=== PATIENT | male | born 1940 | race Caucasian/White ===

== ENCOUNTER → 2017-07-25 | Outpatient (CLI) | payer BC ==
[2016-04-22 00:59] VITALS: BP 138/75
[~2017-07-25] MED LIST: CIPR500T94 PO; COLC1TAB PO; HYDR-2679 PO; LEVO25TA4 PO; LISI10TA2 PO; NAPR220C4 PO; ONDA4TAB7 PO; OXYC-323 PO; SOFO1TAB PO; TAMS0.4C97 PO; THIA100T8 PO
--- NOTE | 2017-07-25 15:22 | RAD ---
EXAM: Chest 2 views. HISTORY: Shortness of breath, hypertension. COMPARISON: 05/24/2008. FINDINGS: Frontal and lateral views of the chest are obtained. Interstitial opacities in both bases have been present chronically. Flattening of the hemidiaphragms is consistent with chronic obstructive pulmonary disease. There is no pneumothorax or pleural effusion. The heart is mildly enlarged. There are postsurgical changes along the upper abdomen. Moderate compression deformity is noted at the thoracolumbar junction. There are milder compression deformities within the mid/upper thoracic spine. IMPRESSION: 1. Chronic obstructive pulmonary disease with superimposed interstitial lung disease or scarring in the bases. 2. Mild cardiomegaly.
== END | disposition home or self-care (01) ==
LOC: RAD 14:03
PROVIDERS: ATTEND Internal Medicine Critical Care Medicine
DX: J44.9 Chronic obstructive pulmonary disease, unspecified (principal); I51.7 Cardiomegaly; M43.8X5 Other specified deforming dorsopathies, thoracolumbar region; I10 Essential (primary) hypertension; F17.210 Nicotine dependence, cigarettes, uncomplicated
CPT/HCPCS: 71020

== ENCOUNTER → 2017-08-05 | Outpatient (CLI) | payer BC ==
[2016-04-22 00:59] VITALS: BP 138/75
[~2017-08-05] MED LIST changes: +CYAN10005 PO; +LOSA50TA6 PO
--- NOTE | 2017-08-05 10:32 | RAD ---
Indication: Interstitial lung disease. Axial imaging through the chest was performed without contrast. Correlation is made with prior CT from 01/30/2016. No axillary lymphadenopathy is seen. Mildly prominent right paratracheal lymph node appears stable when compared with prior study. There are coronary arterial calcifications present. The heart is enlarged. No pericardial or pleural fluid is identified. Occasional blebs or subpleural bullae are noted. There is a focal slightly irregular opacity in the medial aspect of the right upper lobe image 13, series 2 measuring 10 mm. This is more prominent than prior study and remains indeterminate. No other new opacity is seen. Small subpleural nodule right upper lobe image 30 is stable. Calcified granuloma left lower lobe is noted. Subpleural nodule left lower lobe image 40, series 2 measures 6 mm compared with 4 mm. Close follow-up is recommended. Upper abdomen shows multiple calculi within bilateral kidneys. Impression: 1. Increase in the irregular opacity in the right lung apex since study from 01/30/2016. There is also a slightly larger subpleural nodule left lower lobe. Both of these are indeterminate. Close follow-up with repeat study in 3-6 months recommended to confirm stability. PQRS Compliance Statement: One or more of the following individualized dose reduction techniques were utilized for this examination: 1. Automated exposure control 2. Adjustment of the mA and/or kV according to patient size 3. Use of iterative reconstruction technique
== END | disposition home or self-care (01) ==
LOC: CT 08:59
PROVIDERS: ATTEND Internal Medicine Critical Care Medicine
DX: J84.10 Pulmonary fibrosis, unspecified (principal); I51.7 Cardiomegaly
CPT/HCPCS: 71250; J0690

== ENCOUNTER → 2017-09-02 | Outpatient (CLI) | payer BC ==
[2016-04-22 00:59] VITALS: BP 138/75
[~2017-09-02] MED LIST changes: +ASCO10002 PO; +CIPR500T PO; +OXYMETAZOLINE 0.05% NASAL SPRAY 30ML BOTTLE. NS ONE; +THIA100T43 PO; +VIT1TABL34 PO; +ZOLPIDEM 5 MG TABLET. PO ONE
--- NOTE | 2017-09-03 10:03 | SLEEP ---
DATE OF STUDY: 09/02/2017 ATTENDING PHYSICIAN: Dr. Eli and referred by my office. The patient is a 77-year-old who weighs 168 pounds with a BMI of 30. The patient's [place] score was 3. The patient underwent a split night study at [facility]. During the night study, the patient spent 417 minutes in bed and slept for 182 minutes with a sleep efficiency of 44%. Sleep latency was prolonged at 80 minutes with a REM latency of 272 minutes. Overall, sleep architecture showed increased stage I sleep, normal stage II sleep, normal slow wave and reduced REM sleep. During the initial diagnostic portion of the study, the patient slept for 108 minutes. During this time, there were 9 obstructive apneas, 18 mixed apneas, no central apneas and 17 hypopneas. The patient's apnea hypopnea index was 59 per hour. The patient did not have supine sleep. The patient did not have REM sleep either during the diagnostic portion. Review of nocturnal oximetry study revealed a mean oxygen saturation of 94% with the lowest of 87%; 4% of time oxygen saturation remained between 80% and 89%. EKG monitoring revealed an irregular rhythm consistent with atrial fibrillation. Average heart rate was 52 beats per minute. PLMs were not seen. The patient met the criteria for CPAP initiation. It was started at 5 cm water and titrated up to 7 cm water. At the final pressure, the patient slept for 34 minutes. The patient had supine sleep throughout and a short REM period was observed as well. The patient's AHI was reduced to 0 per hour and oxygen saturation remained above 90%. The patient used small size full face mask. IMPRESSION: 1. Severe sleep apnea-hypopnea syndrome at an apnea-hypopnea index of 59 per hour. 2. Reduced sleep efficiency resulting from sleep onset and sleep maintenance insomnia. 3. No clinically significant periodic limb movements. 4. Abnormal EKG with irregular rhythm consistent with intermittent atrial fibrillation. RECOMMENDATION: 1. CPAP at 7 cm water completely eliminated the patient's sleep apnea and should be used on a nightly basis. 2. Follow up in 4-6 weeks to assess compliance with CPAP and to document clinical improvement. 3. Avoid [employer] depressants. 4. Caution regarding driving until symptoms of sleep apnea resolve with the use of CPAP. 5. Follow Cardiology regarding abnormal EKG. 6. The patient used small size full face mask. 7. If the patient's insomnia does not improve, then it would need further clinical evaluation. BILL BRYANT MD DR: FELIX/thony JOB#: [id number] / [id number] NAN [place]
== END | disposition home or self-care (01) ==
LOC: RT 18:30
PROVIDERS: ATTEND Internal Medicine Critical Care Medicine
DX: G47.33 Obstructive sleep apnea (adult) (pediatric) (principal)
CPT/HCPCS: 95810

== ENCOUNTER 2017-09-11 06:59 | Outpatient (CLI) | payer BC ==
[~2017-09-11] VITALS: Ht 167.6 cm; Wt 76.2 kg
[2017-09-11] VITALS (14 sets, daily range): BP systolic 113–179; BP diastolic 62–84
[~2017-09-11 06:59] MED LIST changes: -ASCO10002 PO; -CIPR500T PO; -OXYMETAZOLINE 0.05% NASAL SPRAY 30ML BOTTLE. NS ONE; -THIA100T43 PO; -VIT1TABL34 PO; -ZOLPIDEM 5 MG TABLET. PO ONE
[2017-09-11] MEDS ORDERED: THIA100T43 PO (07:51)
[2017-09-11] MEDS ORDERED: VIT1TABL34 PO (07:51)
[2017-09-11] MEDS ORDERED: ASCO10002 PO (07:51)
[2017-09-11] MEDS ORDERED: CIPR500T PO (07:51)
[2017-09-11 08:26] LABS: BASO % 1 % (0-3); EOS % 3 % (0-3); HEMATOCRIT 44.9 % (39.0-53.0); HEMOGLOBIN 14.9 g/dL (13.0-17.5); LYMPH # 1.3 x10^3/uL (1.0-4.8); LYMPH % 26 % (24-48); MEAN CORPUSCULAR HEMOGLOBIN 32 pg (25-35); MEAN CORPUSCULAR HGB CONC 33 g/dL (31-37); MEAN CORPUSCULAR VOLUME 97 fL (79-100); MONO % 7 % (0-9); NEUT % 63 % (31-73); PLATELET COUNT 77 x10^3/uL (140-400); RED BLOOD COUNT 4.64 x10^6/uL (4.30-5.70); RED CELL DISTRIBUTION WIDTH 14.4 % (11.5-14.5); WHITE BLOOD COUNT 4.8 x10^3/uL (4.0-11.0)
[2017-09-11 08:37] LABS: INR 1.2 (0.8-1.1); PROTHROMBIN TIME PATIENT 14.1 SEC (11.7-14.0)
[2017-09-11] MEDS ORDERED: LIDOCAINE WITH 8.4% SOD BICARB 3 ML DISP.SYRIN. IJ ONE ×2 (08:37→09:45)
[2017-09-11] MEDS ORDERED: fentaNYL PF VIAL 100 MCG/2 ML VIAL ONE (08:38)
[2017-09-11] MEDS ORDERED: FLUMAZENIL 0.5 MG/5 ML VIAL. IV ONE (08:38)
[2017-09-11] MEDS ORDERED: MIDAZOLAM HCL/PF 2 MG/2 ML VIAL. ONE (08:38)
[2017-09-11] MEDS ORDERED: NALOXONE 0.4 MG/ML VIAL. ONE (08:39)
--- NOTE | 2017-09-11 09:37 | PDOC1 ---
History and Physical Date of Procedure Date of Admission History of Present Illness Reason for Visit RUL lung nodule Past Medical History Past Medical History see nursing assessment Current Medications Current Medications Current Medications Lidocaine/Sodium Bicarbonate (Buffered Lidocaine 1%) 3 ml STK-MED ONCE IJ ; Start 09/11/17 at 08:37; Stop 09/11/17 at 08:38; Status DC Midazolam HCl (Versed) 2 mg STK-MED ONCE .ROUTE ; Start 09/11/17 at 08:38; Stop 09/11/17 at 08:39; Status DC Fentanyl Citrate (Fentanyl 2ml Vial) 100 mcg STK-MED ONCE .ROUTE ; Start at 08:38; Stop 09/11/17 at 08:39; Status DC Flumazenil (Romazicon) 0.5 mg STK-MED ONCE IV ; Start 09/11/17 at 08:38; Stop 09/11/17 at 08:39; Status DC Naloxone HCl (Narcan) 0.4 mg STK-MED ONCE .ROUTE ; Start 09/11/17 at 08:39; Stop 09/11/17 at 08:40; Status DC Lidocaine/Sodium Bicarbonate (Buffered Lidocaine 1%) 9 ml 1X ONCE IJ ; Start 09/11/17 at 09:45; Stop 09/11/17 at 09:46; Status UNV Midazolam HCl (Versed) 2 mg 1X ONCE IV ; Start 09/11/17 at 09:45; Stop at 09:46; Status UNV Fentanyl Citrate (Fentanyl 2ml Vial) 75 mcg 1X ONCE IV ; Start 09/11/17 at 09: 45; Stop 09/11/17 at 09:46; Status UNV Active Scripts Active Reported Ciprofloxacin Hcl 500 Mg Tablet 1 Tab PO BID B-1 (Thiamine HCl) 100 Mg Tablet 100 Mg PO Preservision Areds Tablet (Vit A/Vit C/Vit E/Zinc/Copper) 1 Each Tablet 1 Each PO Vitamin C (Ascorbic Acid) 1,000 Mg Tablet 1,000 Mg PO Vitamin B-12 (Cyanocobalamin (Vitamin B-12)) 1,000 Mcg Tablet 1,000 Mcg PO DAILY Losartan Potassium 50 Mg Tablet 50 Mg PO DAILY Probenecid-Colchicine Tabs (Colchicine/Probenecid) 1 Each Tablet 1 Each PO BID Levothyroxine Sodium 25 Mcg Tablet 25 Mcg PO DAILY Percocet 5-325 Mg Tablet (Oxycodone/Acetaminophen) 1 Each Tablet 1-2 Tab PO Q 4- 6HRS PRN PAIN Allergies Allergies: Coded Allergies: No Known Drug Allergies (Unverified , 02/27/16) Physical Exam Vital Signs Vital Signs Date Time Temp Pulse Resp B/P (MAP) Pulse Ox O2 Delivery O2 Flow Rate FiO2 09/11/17 09:29 59 15 97 Nasal Cannula 2.0 09/11/17 07:41 98.2 179/84 (115) 98.2 Other See nursing assessment Assessment Assessment RUL lung nodule Problems: Plan Plan CT lung biopsy BRIT GREEN MD Sep 11, 2017 09:37
--- NOTE | 2017-09-11 09:38 | PDOC ---
BRIEF OPERATIVE NOTE Pre-Op Diagnosis RUL lung nodule Post-Op Diagnosis same Procedure Performed CT lung biopsy Surgeon Ritchie Anesthesia Type: Conscious Sedation Specimens Obtained 3 x 20g cores Complications None BRIT GREEN MD Sep 11, 2017 09:38
--- NOTE | 2017-09-11 09:38 | PDOC ---
MODERATE SEDATION ASSESSMENT RISKS/ALTERNATIVES Risks/Alternatives Risks and alternatives of this type of sedation and procedure discussed with: RISK/ALTERNATIVES: Patient H & P ON CHART H & P H & P on chart and reviewed for co-morbid conditions and appropriate labs. H&P ON CHART: Yes STATUS PREG STATUS ASSESSED: Yes MEDS/ALLERGIES REVIEWED Meds/Allergies Reviewed Medications and Allergies including time and route of recently administered narcotics and sedatives. MEDS/ALLERGIES REVIEWED: Yes ASA RATING ASA RATING: II AIRWAY ASSESSMENT Airway Assessment Airway patency, oral function limitations, presence of caps, crowns, dentures, partials, and ability to extend neck assessed. AIRWAY ASSESSMENT: Yes MALLAMPATI SCORE MALLAMPATI SCORE: II PRE-SEDATION ASSESSMENT PRE-SEDATION ASSESSMENT: Yes BRIT GREEN MD Sep 11, 2017 09:38
[2017-09-11] MEDS ORDERED: MIDAZOLAM HCL/PF 2 MG/2 ML VIAL. IV ONE (09:45)
[2017-09-11] MEDS ORDERED: fentaNYL PF VIAL 100 MCG/2 ML VIAL IV ONE (09:45)
--- NOTE | 2017-09-11 10:26 | RAD ---
Procedure: CT-guided right lung biopsy Clinical Indication: Adult male with right upper lobe lung nodule Sedation: Conscious sedation was administered for 22 minutes. The patient was monitored by a qualified independent observer throughout the time of sedation. Please refer to the medical record for exact doses of medications utilized to achieve moderate sedation. Antibiotics: None Contrast: None Sterility: The procedure was performed in its entirety using appropriate elements of sterile technique. Consent: The procedure was explained in its entirety to the patient or the patients designated transportation services representative by a member of the treatment team, including a discussion of the risks, benefits and commonly accepted alternatives to the procedure, as well as the expected consequences of no therapy whatsoever. Discussion of the risks included, but was not limited to, those that are most frequent and those that are rare but possibly severe or life-threatening, as well as the possibility of unforeseen complications. Technique and Findings: Following informed consent, the patient was prepped and draped in usual sterile fashion. Preliminary CT scan of the area of interest was performed. 1% lidocaine was used to achieve local anesthesia. A small dermatotomy was made. Under periodic CT surveillance, a 19-gauge needle guide was advanced towards the target lesion in 3 x 20-gauge core biopsy specimens were obtained and preserved in formalin. A blood patch was applied as the needle guide was removed and hemostasis was achieved with manual compression. Complications: No immediate Impression: 1. CT-guided right upper lobe lung biopsy as described. PQRS Compliance Statement: One or more of the following individualized dose reduction techniques were utilized for this examination: 1. Automated exposure control 2. Adjustment of the mA and/or kV according to patient size 3. Use of iterative reconstruction technique
--- NOTE | 2017-09-11 12:24 | RAD ---
Inspection and expiration chest radiographs without comparison for status post right lung biopsy. Findings: There is no pneumothorax or pleural effusion. Increased interstitial markings in the right lung base likely reflects chronic interstitial changes. Cardiomediastinum is grossly unremarkable. There is an old healed rib fracture on the right. Impression: 1. No acute cardiopulmonary abnormality.
--- NOTE | 2017-09-12 11:23 | PATHOLOGY ---
PATHOLOGY REPORT * * * * * * * * FINAL DIAGNOSIS: Lung tissue, right lung needle biopsies: - Focal recent intraalveolar hemorrhage and mild interstitial chronic inflammation. COMMENT: Sections of the right lung needle biopsy reveal multiple segments of lung tissue showing focal recent intraalveolar hemorrhage and focal mild interstitial chronic inflammation. Alveolar spaces are focally lined by plump, reactive, mildly atypical pneumocytes. There is no definitive evidence of malignancy. (JPM:pit; 09/12/2017) REPORT ELECTRONICALLY SIGNED BY: Georgi Huertas M.D. DATE/TIME: 09/12/2017 11:21 * * * * * * * * GROSS PATHOLOGY: The specimen is received in formalin, labeled "Marcial Araujo and right lung biopsy", are several needle core richard fragments, the aggregate measure 0.3 x 0.2 cm. The specimen is filtered into a biopsy bag and entirely submitted in A1. (SWS; 09/11/2017) INITIAL CPT CODE(S): A; 12320 Professional services [place] [address] Technical services performed by [facility] at [address] [place] [address]. SPECIMEN(S) RECEIVED: A.Right upper lobe lung biopsy CLINICAL HISTORY: Right lung nodule PATIENT: MARCIAL ARAUJO SR /AGE: 704/02/1940 (Age: 77) PATIENT #: [id number] ALT CASE #: SPECIMEN COLLECTION DATE: 09/11/2017 SPECIMEN RECEIVED DATE: 09/11/2017 [facility] - [address] [place] [address] - PHONE: [phone] * * * END OF REPORT * * *
== END 2017-09-11 13:30 | disposition home or self-care (01) ==
LOC: INTRAD 06:59
PROVIDERS: ATTEND Internal Medicine Critical Care Medicine
DX: R91.1 Solitary pulmonary nodule (principal); I11.0 Hypertensive heart disease with heart failure; I50.9 Heart failure, unspecified; K21.9 Gastro-esophageal reflux disease without esophagitis; M19.91 Primary osteoarthritis, unspecified site; E03.9 Hypothyroidism, unspecified; F32.9 Major depressive disorder, single episode, unspecified; F17.200 Nicotine dependence, unspecified, uncomplicated; Z79.01 Long term (current) use of anticoagulants; Z98.41 Cataract extraction status, right eye; Z98.42 Cataract extraction status, left eye; Z90.49 Acquired absence of other specified parts of digestive tract; Z72.89 Other problems related to lifestyle; Z85.46 Personal history of malignant neoplasm of prostate; Z87.442 Personal history of urinary calculi
CPT/HCPCS: 32405; 36415; 71035; 77012; 85025; 85610; 99152; 99153; J2250; J3010

== ENCOUNTER 2018-07-12 11:41 | Emergency (ER) | payer BC ==
[~2018-07-12] VITALS: Ht 167.6 cm; Wt 76.7 kg
[~2018-07-12 11:41] MED LIST changes: +ASCO10002 PO; +CIPR500T PO; -LOSA50TA6 PO; +LOSA50TA7 PO; +THIA100T43 PO; +VIT1TABL34 PO
[2018-07-12] MEDS ORDERED: IV NORMAL SALINE 500ML BAG 500 ML IV ONE (12:15)
[2018-07-12] MEDS ORDERED: fentaNYL PF VIAL 100 MCG/2 ML VIAL IV ONE ×2 (12:15→13:30)
--- NOTE | 2018-07-12 12:19 | PHYS DOC ---
Past Medical History Past Medical History: Alcoholism, CHF, COPD, Hypertension, Hypothyroid, Kidney Stone Additional Past Medical Histor: gout, prostate ca, rt knee pain, hep c Past Surgical History: Cholecystectomy, Knee Replacement Additional Past Surgical Histo: 4 hernia surgeries, cystoscopy Additional Information: 1 ppd Alcohol Use: Heavy Additional Information: 12 pack beer daily, vodka every night Drug Use: None Adult General Chief Complaint Chief Complaint: BACK PAIN - NO INJURY HPI HPI 78-year-old male presents to ER via POV with his son Werner for complaints of lower back pain which started on Saturday. Patient had no symptoms on Saturday and won't Saturday morning with lower back pain which radiated into his left buttock. Patient reports last Saturday he drove his truck with a trailer containing heavy items to [place] which bounced freq. with weight of trailer. Pt reports he took aleve this morning with minimal relief in sxs. Pt denies CP, palpitations, SOA, abd pain, N/V/D, fever, urinary sxs, or swelling in extremities. Pt denies any change in bowel pattern. Patient denies saddle anesthesia or incontinence of bowel or bladder. She reports he had regular bowel movement yesterday. He reports in the past couple weeks he had some started patient on which his doctor informed him to increase his fluid intake. Patient reports he is a daily drinker of 6-12 beers and 2-3 vodka drinks. Patient reports he has one pack per day cigarette smoker. Patient denies any swelling or pain in bilateral calves. Patient denies any other travel. Review of Systems Review of Systems Constitutional: Denies fever or chills [] Eyes: Denies change in visual acuity, redness, or eye pain [] HENT: Denies nasal congestion or sore throat [] Respiratory: Denies cough or shortness of breath [] Cardiovascular: Denies CP GI: Denies abdominal pain, nausea, vomiting, bloody stools or diarrhea area denies saddle anesthesia. Reports regular bowel movement yesterday : Denies dysuria or hematuria. Denies incontinence Musculoskeletal: Denies joint pain. Reports lower back pain Integument: Denies rash, swelling or skin lesions [] Neurologic: Denies headache, focal weakness or sensory changes. Denies numbness or tingling, dizziness, or lightheadedness All other systems were reviewed and found to be within normal limits, except as documented in this note. Current Medications Current Medications Current Medications Medications (Trade) Dose Ordered Sig/[place] Start Time Stop Time Status Last Admin Dose Admin Fentanyl Citrate (Fentanyl 2ml Vial) 25 mcg 1X ONCE 07/12/18 13:30 07/12/18 13:31 DC 07/12/18 13:29 25 MCG Info (CONTRAST GIVEN -- Rx MONITORING) 1 each PRN DAILY PRN 07/12/18 12:30 07/12/18 14:57 DC Iohexol (Omnipaque 300 Mg/ml) 75 ml 1X ONCE 07/12/18 12:30 07/12/18 12:31 DC 07/12/18 12:30 75 ML Lidocaine (Lidoderm) 1 patch STK-MED ONCE 07/12/18 12:27 07/12/18 12:28 DC Sodium Chloride 500 ml @ 500 mls/hr 1X ONCE 07/12/18 12:15 07/12/18 13:14 DC 07/12/18 12:30 500 MLS/HR Allergies Allergies Allergies Coded Allergies Type Severity Reaction Last Updated Verified No Known Drug Allergies 06/25/18 No Physical Exam Physical Exam Constitutional: Well developed, well nourished, no acute distress, non-toxic appearance. [] HENT: Normocephalic, atraumatic, oropharynx moist, nose normal. [] Eyes: pupils equal, conjunctiva normal, no discharge. [] Neck: Normal range of motion, no tenderness, supple, no stridor. [] Cardiovascular:Heart rate regular rhythm, no murmur [] Lungs & Thorax: Bilateral breath sounds clear to auscultation. Resp. equal/ nonlabored Abdomen: Bowel sounds normal, soft, no tenderness, no pulsatile masses. Visible hernia mid umbilical- no rigidity/distention Skin: Warm, dry, no erythema, no rash. [] Back: Tender to palp. midline lumbar spine- no deformity/crepitus. No ecchymosis /skin discoloration. Pt is able to reposition self with slow movements- facial grimacing and c/o increased pain with repositioning. No CVA tenderness. [] Extremities: No tenderness, no cyanosis, no clubbing, ROM intact, no edema. [] Neurologic: Alert and oriented X 3, normal motor function, normal sensory function, no focal deficits noted. [] Psychologic: Affect normal, judgement normal, mood normal. [] Current Patient Data Vital Signs Vital Signs Date Time Temp Pulse Resp B/P (MAP) Pulse Ox O2 Delivery O2 Flow Rate FiO2 07/12/18 14:37 52 20 172/80 (110) 97 Room Air 07/12/18 11:52 97.8 97.8 Lab Values Laboratory Tests Test 07/12/18 12:20 07/12/18 12:50 White Blood Count 5.5 x10^3/uL (4.0-11.0) Red Blood Count 4.38 x10^6/uL (4.30-5.70) Hemoglobin 14.8 g/dL (13.0-17.5) Hematocrit 42.1 % (39.0-53.0) Mean Corpuscular Volume 96 fL (79-100) Mean Corpuscular Hemoglobin 34 pg (25-35) Mean Corpuscular Hemoglobin Concent 35 g/dL (31-37) Red Cell Distribution Width 14.2 % (11.5-14.5) Platelet Count 72 x10^3/uL (140-400) L Neutrophils (%) (Auto) 62 % (31-73) Lymphocytes (%) (Auto) 22 % (24-48) L Monocytes (%) (Auto) 7 % (0-9) Eosinophils (%) (Auto) 9 % (0-3) H Basophils (%) (Auto) 1 % (0-3) Neutrophils # (Auto) 3.4 x10^3uL (1.8-7.7) Lymphocytes # (Auto) 1.2 x10^3/uL (1.0-4.8) Monocytes # (Auto) 0.4 x10^3/uL (0.0-1.1) Eosinophils # (Auto) 0.5 x10^3/uL (0.0-0.7) Basophils # (Auto) 0.0 x10^3/uL (0.0-0.2) Sodium Level 141 mmol/L (136-145) Potassium Level 4.1 mmol/L (3.5-5.1) Chloride Level 103 mmol/L (98-107) Carbon Dioxide Level 25 mmol/L (21-32) Anion Gap 13 (6-14) Blood Urea Nitrogen 13 mg/dL (8-26) Creatinine 1.1 mg/dL (0.7-1.3) Estimated GFR (Cockcroft-Gault) 64.7 BUN/Creatinine Ratio 12 (6-20) Glucose Level 106 mg/dL (70-99) H Lactic Acid Level 1.9 mmol/L (0.4-2.0) Calcium Level 9.3 mg/dL (8.5-10.1) Total Bilirubin 0.9 mg/dL (0.2-1.0) Aspartate Amino Transferase (AST) 12 U/L (15-37) L Alanine Aminotransferase (ALT) 18 U/L (16-63) Alkaline Phosphatase 90 U/L (46-116) Total Protein 7.0 g/dL (6.4-8.2) Albumin 3.6 g/dL (3.4-5.0) Albumin/Globulin Ratio 1.1 (1.0-1.7) Urine Collection Type Void Urine Color Yellow Urine Clarity Clear Urine pH 7.0 Urine Specific [place] 1.010 Urine Protein Negative mg/dL (NEG-TRACE) Urine Glucose (UA) Negative mg/dL (NEG) Urine Ketones (Stick) Negative mg/dL (NEG) Urine Blood Negative (NEG) Urine Nitrite Negative (NEG) Urine Bilirubin Negative (NEG) Urine Urobilinogen Dipstick 0.2 mg/dL (0.2 mg/dL) Urine Leukocyte Esterase Negative (NEG) Urine RBC 1-2 /HPF (0-2) Urine WBC 1-4 /HPF (0-4) Urine Squamous Epithelial Cells Few /LPF Urine Bacteria Few /HPF (0-FEW) Urine Hyaline Casts Few /HPF Urine Mucus Slight /LPF Laboratory Tests 07/12/18 12:20 Laboratory Tests 07/12/18 12:20 EKG EKG [] Radiology/Procedures Radiology/Procedures PROCEDURE: CT ABD PELV W/ IV CONTRST ONLY Examination: CT ABD PELV W/ IV CONTRST ONLY History: sudden lower abd and back pain, Omni 300 75ml
prior sent, prostate cancer. Comparison/Correlation: CT chest abdomen pelvis with contrast 01/30/2016 Findings: Axial images of the abdomen and pelvis were obtained following 300 cc Omnipaque 300 IV. Sagittal and coronal reformatted images were provided. Emphysematous bolus involvement of the medial left lung base is noted. Bullous involvement atelectasis to a much lesser extent involving the lung lo. No suspicious pulmonary nodule or mass. Scarring involving the medial right upper lung is noted. Calcification of the tracheobronchial tree wall noted. No enlarged thoracic lymph nodes. Thoracic aorta is unremarkable. Small hiatal hernia is present. Nodular contour of the liver compatible with cirrhosis or other fibrotic process noted. Thrombus is identified involving the superior mesenteric vein just proximal to portal vein confluence similar to the previous exam.. Cholecystectomy noted. Spleen is enlarged measuring 17 cm longitudinal. Pancreas is normal. Right adrenal gland is identified having nodule involving the medial limb which is similar compared to the previous CT exam. Nodular involvement of the left adrenal gland also is stable. Bilateral renal cysts are again identified. No hydronephrosis. Appendix is normal. Moderate quantity of stool in the colon is present. Extensive diverticulosis of the colon noted. Ventral wall hernia repair evident. Urinary bladder is unremarkable. Bilateral L5 pars interarticularis fractures are present with grade 2 anterolisthesis of L5 in relation S1 and associated disc space narrowing. Compression deformity of the T12 vertebral body superior endplate is mild and similar to prior exam. There is new compression deformity of the inferior endplate of L3. No enlarged abdominal or pelvic lymph nodes. No ascites or pelvic free fluid. No sclerotic bony lesions identified. Prostatectomy. Impression: Hiatal hernia. Findings of hepatic cirrhosis and splenomegaly due to portal hypertension. 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 Bilateral L5 pars intraarticularis fractures with grade 2 anterolisthesis of L5 in relation S1 is present. There is slight increase in anterolisthesis of L5 in relation S1 compared to the previous CT exam of 01/30/2016. Compression deformity of the L3 inferior endplate is new compared to previous exam. No suspicious lytic or sclerotic lesions involving the bony structures in the interval. Diverticulosis. Electronically signed by: Michael Brown MD (07/12/2018 1:57 PM) [facility] DICTATED and SIGNED BY: MICHAEL BROWN MD DATE: 07/12/18 1338 PROCEDURE: CT LUMBAR SPINE RECONSTRUCTION Examination: CT LUMBAR SPINE RECONSTRUCTION History: lower back pain, reconstruction Comparison/Correlation: CT abdomen and pelvis with contrast dated 01/30/2016 Findings: Axial images of the lumbar spine were obtained. Sagittal and coronal reformatted images were provided. Bilateral L5 pars intraarticularis fractures with grade 2 anterolisthesis of L5 in relation S1 is present. There is slight increase in anterolisthesis of L5 in relation S1 compared to the previous CT exam of 01/30/2016. Compression deformity of the L3 inferior endplate is noted compared to the previous exam. The disc spaces and alignment of the spine otherwise are unremarkable from the visualized lower thoracic spine to L5. Bilateral nonobstructive renal calculi are present. At the right lower pole, the largest calculus is identified measuring up to 0.5 cm diameter. No hydronephrosis. No evidence of calculi involving the ureters. Urinary bladder is unremarkable. Impression: Bilateral L5 pars interarticularis fractures again seen with grade 2 anterolisthesis. Anterolisthesis of L5 in relation S1 is increased compared to 01/30/2000 L3 vertebral body inferior endplate compression fracture is new compared to the previous exam but otherwise is of indeterminate age. Nonobstructive renal calculi. Electronically signed by: Michael Brown MD (07/12/2018 2:02 PM) [facility] DICTATED and SIGNED BY: MICHAEL BROWN MD DATE: 07/12/18 0169 Course & Med Decision Making Course & Med Decision Making Pertinent Labs and Imaging studies reviewed. (See chart for details) 1420: Discussed test results with patient and his family- UA unremarkable. Labs with platelets at 72 which was similar to previous reports in pt's records- this was discussed with him along with his daily alcohol drinking routine- other labs unremarkable. Lactic acid NL at 1.9. Discussed CT results with hiatal hernia noted; "L5 fxs again seen with slight increase in anterolisthesis when compared to previous exam of 01/29/18"; compression deformity of L3 which is new. Discussed results showing hepatic cirrhosis and splenomegaly. In depth conversation was had with pt regarding his daily alcohol intake. Discussed increasing water intake. Admission was offered for pain control further care and pt adamant on home discharge. Pt to f/u with PCP in next 1-2 days for re-evaluation and further care. Discussed use of walker for stability. Discussed alcohol cessation- especially if taking [place] tablets as pt will be provided with sm. quantity with discharge paperwork for concerns of his pain. Fall precautions discussed with strict instruction on walker use. Discussion had with patient regarding constipation as moderate amount of stool was noted on CT results. CT results noted thoracic aorta to be unremarkable. Patient reports his doctor has given him stool softener which she can take. Pt to use OTC ibuprofen as directed on container and will be provided with Rx for Lidoderm patches. Discharge instructions were discussed and education provided on signs and symptoms to return to ER for. At time of discharge patient reports his pain has improved following second dose of pain medication. Patient remains neuro and vascular intact in bilateral lower extremities. Patient has been able to reposition self but does continue to have increased pain with any movements. Dragon Disclaimer Dragon Disclaimer This electronic medical record was generated, in whole or in part, using a voice recognition dictation system. Departure Departure Impression: Primary Impression: Lumbar compression fracture Additional Impression: Back pain Disposition: 01 HOME, SELF-CARE Condition: STABLE Referrals: NAN PATTERSON (PCP) Patient Instructions: Back Pain, Adult, Back, Compression Fracture Additional Instructions: Use walker while walking to prevent falls. Avoid alcohol intake- especially while taking [place] tablets. Increase water intake and take stool softner as your doctor advised to prevent constipation. Follow-up with your doctor in next 1-2 days for re-evaluation and care. You can take Ibuprofen or aleve as directed on container for pain. Scripts Lidocaine (Lidocaine) 1 Each Adh..patch 1 EACH TP Q12HR PRN for PAIN, #5 PATCH 0 Refills Prov: АНДРЕЙ KENT APRN 07/12/18 Hydrocodone/Apap 5-325 (NORCO 5-325 TABLET) 1 Each Tablet 1 TAB PO PRN Q6HRS PRN for PAIN, #10 TAB 0 Refills Prov: АНДРЕЙ KENT APRN 07/12/18 Problem Qualifiers АНДРЕЙ KENT APRN Jul 12, 2018 12:19
[2018-07-12] MEDS ORDERED: LIDOCAINE (700MG/PATCH) PATCH. ONE (12:27)
[2018-07-12] MEDS ORDERED: fentaNYL PF VIAL 100 MCG/2 ML VIAL ONE (12:27)
[2018-07-12] MEDS ORDERED: IOHEXOL 300 MG/ML 100ML VIAL. IV ONE (12:30)
[2018-07-12] MEDS ORDERED: CONTRAST GIVEN. MC PRN (12:30)
[2018-07-12 12:34] LABS: BASO % 1 % (0-3); EOS # 0.5 x10^3/uL (0.0-0.7); EOS % 9 % (0-3); HEMATOCRIT 42.1 % (39.0-53.0); HEMOGLOBIN 14.8 g/dL (13.0-17.5); LYMPH # 1.2 x10^3/uL (1.0-4.8); LYMPH % 22 % (24-48); MEAN CORPUSCULAR HEMOGLOBIN 34 pg (25-35); MEAN CORPUSCULAR HGB CONC 35 g/dL (31-37); MEAN CORPUSCULAR VOLUME 96 fL (79-100); MONO # 0.4 x10^3/uL (0.0-1.1); MONO % 7 % (0-9); NEUT # 3.4 x10^3uL (1.8-7.7); NEUT % 62 % (31-73); PLATELET COUNT 72 x10^3/uL (140-400); RED BLOOD COUNT 4.38 x10^6/uL (4.30-5.70); RED CELL DISTRIBUTION WIDTH 14.2 % (11.5-14.5); WHITE BLOOD COUNT 5.5 x10^3/uL (4.0-11.0)
[2018-07-12 12:41] LABS: CALCIUM 9.3 mg/dL (8.5-10.1); CREATININE 1.1 mg/dL (0.7-1.3); GFR 64.7; POTASSIUM 4.1 mmol/L (3.5-5.1)
[2018-07-12 12:46] LABS: ALBUMIN 3.6 g/dL (3.4-5.0); ALBUMIN/GLOBULIN RATIO 1.1 (1.0-1.7); TOTAL BILIRUBIN 0.9 mg/dL (0.2-1.0)
[2018-07-12] MEDS ORDERED: LIDOCAINE (700MG/PATCH) PATCH. TD SCH (13:00)
[2018-07-12 13:11] LABS: BILIRUBIN,URINE NEGATIVE (NEG); CLARITY,URINE CLEAR; COLOR,URINE YELLOW; NITRITE,URINE NEGATIVE (NEG); PROTEIN,URINE NEGATIVE (NEG-TRACE); UROBILINOGEN,URINE 0.2 mg/dL (0.2 mg/dL)
[2018-07-12 13:22] LABS: SQUAMOUS EPITHELIAL CELL,UR FEW /LPF
[2018-07-12 13:23] LABS: HYALINE CASTS, URINE FEW /HPF
[2018-07-12 13:24] LABS: BACTERIA,URINE FEW /HPF (0-FEW)
--- NOTE | 2018-07-12 14:00 | RAD ---
Examination: CT ABD PELV W/ IV CONTRST ONLY History: sudden lower abd and back pain, Omni 300 75ml
prior sent, prostate cancer. Comparison/Correlation: CT chest abdomen pelvis with contrast 01/30/2016 Findings: Axial images of the abdomen and pelvis were obtained following 300 cc Omnipaque 300 IV. Sagittal and coronal reformatted images were provided. Emphysematous bolus involvement of the medial left lung base is noted. Bullous involvement atelectasis to a much lesser extent involving the lung lo. No suspicious pulmonary nodule or mass. Scarring involving the medial right upper lung is noted. Calcification of the tracheobronchial tree wall noted. No enlarged thoracic lymph nodes. Thoracic aorta is unremarkable. Small hiatal hernia is present. Nodular contour of the liver compatible with cirrhosis or other fibrotic process noted. Thrombus is identified involving the superior mesenteric vein just proximal to portal vein confluence similar to the previous exam.. Cholecystectomy noted. Spleen is enlarged measuring 17 cm longitudinal. Pancreas is normal. Right adrenal gland is identified having nodule involving the medial limb which is similar compared to the previous CT exam. Nodular involvement of the left adrenal gland also is stable. Bilateral renal cysts are again identified. No hydronephrosis. Appendix is normal. Moderate quantity of stool in the colon is present. Extensive diverticulosis of the colon noted. Ventral wall hernia repair evident. Urinary bladder is unremarkable. Bilateral L5 pars interarticularis fractures are present with grade 2 anterolisthesis of L5 in relation S1 and associated disc space narrowing. Compression deformity of the T12 vertebral body superior endplate is mild and similar to prior exam. There is new compression deformity of the inferior endplate of L3. No enlarged abdominal or pelvic lymph nodes. No ascites or pelvic free fluid. No sclerotic bony lesions identified. Prostatectomy. Impression: Hiatal hernia. Findings of hepatic cirrhosis and splenomegaly due to portal hypertension. 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 Bilateral L5 pars intraarticularis fractures with grade 2 anterolisthesis of L5 in relation S1 is present. There is slight increase in anterolisthesis of L5 in relation S1 compared to the previous CT exam of 01/30/2016. Compression deformity of the L3 inferior endplate is new compared to previous exam. No suspicious lytic or sclerotic lesions involving the bony structures in the interval. Diverticulosis. Electronically signed by: Michael Li MD (07/12/2018 1:57 PM) [facility]
--- NOTE | 2018-07-12 14:05 | RAD ---
Examination: CT LUMBAR SPINE RECONSTRUCTION History: lower back pain, reconstruction Comparison/Correlation: CT abdomen and pelvis with contrast dated 01/30/2016 Findings: Axial images of the lumbar spine were obtained. Sagittal and coronal reformatted images were provided. Bilateral L5 pars intraarticularis fractures with grade 2 anterolisthesis of L5 in relation S1 is present. There is slight increase in anterolisthesis of L5 in relation S1 compared to the previous CT exam of 01/30/2016. Compression deformity of the L3 inferior endplate is noted compared to the previous exam. The disc spaces and alignment of the spine otherwise are unremarkable from the visualized lower thoracic spine to L5. Bilateral nonobstructive renal calculi are present. At the right lower pole, the largest calculus is identified measuring up to 0.5 cm diameter. No hydronephrosis. No evidence of calculi involving the ureters. Urinary bladder is unremarkable. Impression: Bilateral L5 pars interarticularis fractures again seen with grade 2 anterolisthesis. Anterolisthesis of L5 in relation S1 is increased compared to 01/30/2000 L3 vertebral body inferior endplate compression fracture is new compared to the previous exam but otherwise is of indeterminate age. Nonobstructive renal calculi. Electronically signed by: Michael Li MD (07/12/2018 2:02 PM) [facility]
[2018-07-12] MEDS ORDERED: LIDO700A39 TP (14:28)
[2018-07-12] MEDS ORDERED: HYDR-971 PO (14:28)
[2018-07-12 14:37] VITALS: BP 172/80
== END 2018-07-12 14:39 | disposition home or self-care (01) ==
LOC: ER 11:41
DX: S32.038A Other fracture of third lumbar vertebra, initial encounter for closed fracture (principal); J44.9 Chronic obstructive pulmonary disease, unspecified; I11.0 Hypertensive heart disease with heart failure; I50.9 Heart failure, unspecified; E03.9 Hypothyroidism, unspecified; M10.9 Gout, unspecified; F10.20 Alcohol dependence, uncomplicated; Y90.9 Presence of alcohol in blood, level not specified; F17.200 Nicotine dependence, unspecified, uncomplicated; Z90.49 Acquired absence of other specified parts of digestive tract; Z98.890 Other specified postprocedural states; Z87.442 Personal history of urinary calculi; X50.0XXA Overexertion from strenuous movement or load, initial encounter; Y93.89 Activity, other specified; Y92.89 Other specified places as the place of occurrence of the external cause; Y99.8 Other external cause status
CPT/HCPCS: 36415; 74177; 80053; 81001; 83605; 85025; 96374; 96376; 99285; J3010; J7040; Q9967

== ENCOUNTER → 2018-08-29 | Outpatient (CLI) | payer BC ==
[~2018-08-29] MED LIST changes: +CONTRAST GIVEN. MC PRN; +HYDR-3164 PO; +IOHEXOL 240 MG/ML 50ML VIAL. PO ONE; +IOHEXOL 300 MG/ML 100ML VIAL. IV ONE; +LIDO700A39 TP; +LOSA-73 PO; -LOSA50TA7 PO; -OXYC-323 PO; +OXYC1TAB15 PO; +OXYC5TAB4 PO; +SENN-37 PO
--- NOTE | 2018-08-29 12:55 | RAD ---
PQRS Compliance statement: One or more of the following individualized dose reduction techniques were utilized for this examination: 1. Automated exposure control. 2. Adjustment of the mA and/or kV according to patient size. 3. Use of iterative reconstruction technique. Indication:PROSTATE CA F/U> TECHNIQUE: CT chest, abdomen and pelviswith IV contrast with multiplanar reformats. COMPARISON: CT chest from 08/05/[address] abdomen pelvis from 07/12/2018 FINDINGS: CT chest: Heart is normal in size. No pericardial or pleural effusion. New Right superior mediastinal mass is seen measuring 3.7 x 3.1 cm. Enlarged mediastinal lymph node is seen in the pretracheal recess measuring 1.7 x 1.3 cm. Right suprahilar mass measuring 2.4 x 2.0 cm. Mildly enlarged 1.0 x 2.0 cm subcarinal lymph node. No axillary adenopathy. The right suprahilar mass exerts significant mass effect on the central branches of the right upper lobe pulmonary arteries. Right upper lobe pleural-based nodule measuring 1.2 cm (series 2 image 13). Multiple pleural-based nodularity seen in the right upper lobe. Stable 3 mm nodule in the right upper lobe (series 2 image 28). New 6 mm right pericardial nodule (series 2 image 31). New 3 mm right lower lobe nodule medially (series 2 image 38). New right major fissure nodule measuring 15 mm (series 2 image 33). Stable left lower lobe subpleural nodule measuring 3 mm (series 2 image 38). Mildly displaced right posterolateral 10th rib fracture. Mild superior endplate compression deformity of T4 and T12 vertebral bodies. Central compression fracture of the T11 vertebral body. No retropulsion the spinal canal. Enlarged right costophrenic recess lymph nodes are seen, the largest measuring 1.6 x 1.0 cm. Nodular contour of the liver is seen with low body distribution without focal hepatic lesion. Spleen is enlarged measuring 16 cm without focal lesion. Status post cholecystectomy. Pancreas is within normal limits. Multiple right adrenal gland nodules are seen, the largest measuring 1.4 cm. (The gland nodule is new and measures 3.0 x 2.0 cm. Multiple nonobstructing stones are seen in the right kidney. Multiple bilateral low attenuating lesions are seen in the bilateral kidneys likely simple cysts. No hydronephrosis. Enlarged retroperitoneal lymph nodes are seen as follows: Anabel hepatis lymph node measuring 1.7 x 1.5 cm, stable. 1.6 x 1.0 cm paracaval lymph node (series 4 image 39), stable. 1.9 x 1.1 cm aortocaval recess lymph node (series 4 image 35), stable. 1.5 x 1.2 cm right external iliac chain lymph node (series 4 image 61), stable. No free pelvic fluid or ascites. No bowel obstruction. Descending colon diverticulosis. Moderate diffuse atherosclerotic calcification seen of the abdominal aorta and bilateral iliac arteries. Urinary bladder within normal limits. Status post prostatectomy. 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 Interval development of compression deformity at L3 vertebral body with no retropulsion the spinal canal. Stable bilateral L5 pars defect with grade 1 anterolisthesis of L5 over S1. IMPRESSION: 1. Metastatic disease in the chest as described above. 2. Stable mildly enlarged retroperitoneal and pelvic lymph nodes highly concerning for metastasis. 3. New and progression of previous is seen compression deformities in the thoracic and lumbar spine as described above without retropulsion into spinal canal. 4. Left adrenal nodule highly concerning for metastasis. 5. Please see above for incidental findings. Electronically signed by: Hi Paniagua DO (08/29/2018 12:51 PM) [facility]
--- NOTE | 2018-08-29 16:29 | RAD ---
Indication: Prostate cancer with back pain for 2 months. TECHNIQUE: Nuclear medicine bone scan with 26.8 mCi of technetium 99m MDP. COMPARISON: CT from same day FINDINGS: Multifocal uptake of radiopharmaceutical is seen in the ribs, left aspect of the high convexity of the calvarium, in the vertebral bodies, in the mid shaft of the right femur and sternum compatible with osseous metastasis. Increased uptake in L3 vertebral body likely secondary to compression fracture. IMPRESSION: Multifocal osseous metastasis as described above. Electronically signed by: Hi Paniagua DO (08/29/2018 4:25 PM) [facility]
== END | disposition home or self-care (01) ==
LOC: NM 08:09
PROVIDERS: ATTEND Internal Medicine Hematology & Oncology
DX: C61 Malignant neoplasm of prostate (principal); S22.32XA Fracture of one rib, left side, initial encounter for closed fracture; S22.080A Wedge compression fracture of T11-T12 vertebra, initial encounter for closed fracture; R16.1 Splenomegaly, not elsewhere classified; R91.8 Other nonspecific abnormal finding of lung field; K57.30 Diverticulosis of large intestine without perforation or abscess without bleeding; I70.8 Atherosclerosis of other arteries; M43.8X6 Other specified deforming dorsopathies, lumbar region; Z90.49 Acquired absence of other specified parts of digestive tract; X58.XXXA Exposure to other specified factors, initial encounter; Y93.89 Activity, other specified; Y92.89 Other specified places as the place of occurrence of the external cause; Y99.2 Volunteer activity
CPT/HCPCS: 71260; 74177; 78306; 96374; A9503; Q9966; Q9967

== ENCOUNTER 2018-09-03 08:48 | Outpatient (CLI) | payer BC ==
[~2018-09-03] VITALS: Ht 167.6 cm; Wt 69.9 kg
[2018-09-03] VITALS (9 sets, daily range): BP systolic 98–135; BP diastolic 51–77
[~2018-09-03 08:48] MED LIST changes: -CONTRAST GIVEN. MC PRN; -IOHEXOL 240 MG/ML 50ML VIAL. PO ONE; -IOHEXOL 300 MG/ML 100ML VIAL. IV ONE
[2018-09-03] MEDS ORDERED: TRAM50TA PO (09:18)
[2018-09-03] MEDS ORDERED: TAMS0.4C2 PO (09:18)
[2018-09-03] MEDS ORDERED: FLUT1BLS3 IH (09:18)
[2018-09-03] MEDS ORDERED: COLC1TAB PO (09:18)
[2018-09-03] MEDS ORDERED: LIDOCAINE WITH 8.4% SOD BICARB 3 ML DISP.SYRIN. ONE (09:29)
[2018-09-03] MEDS ORDERED: fentaNYL PF VIAL 250 MCG/5 ML VIAL ONE (09:31)
[2018-09-03] MEDS ORDERED: MIDAZOLAM HCL/PF 5 MG/5 ML VIAL. ONE (09:31)
[2018-09-03 09:32] LABS: BASO % 0 % (0-3); EOS # 1.4 x10^3/uL (0.0-0.7); EOS % 22 % (0-3); HEMATOCRIT 37.7 % (39.0-53.0); HEMOGLOBIN 12.9 g/dL (13.0-17.5); LYMPH # 0.3 x10^3/uL (1.0-4.8); LYMPH % 5 % (24-48); MEAN CORPUSCULAR HEMOGLOBIN 31 pg (25-35); MEAN CORPUSCULAR HGB CONC 34 g/dL (31-37); MEAN CORPUSCULAR VOLUME 92 fL (79-100); MONO # 0.3 x10^3/uL (0.0-1.1); MONO % 5 % (0-9); NEUT # 4.3 x10^3uL (1.8-7.7); NEUT % 68 % (31-73); PLATELET COUNT 68 x10^3/uL (140-400); RED BLOOD COUNT 4.11 x10^6/uL (4.30-5.70); RED CELL DISTRIBUTION WIDTH 13.6 % (11.5-14.5); WHITE BLOOD COUNT 6.3 x10^3/uL (4.0-11.0)
[2018-09-03 09:42] LABS: PROTHROMBIN TIME PATIENT 15.8 SEC (11.7-14.0)
[2018-09-03] MEDS ORDERED: MIDAZOLAM HCL/PF 5 MG/5 ML VIAL. IV ONE (09:45)
[2018-09-03] MEDS ORDERED: fentaNYL PF VIAL 250 MCG/5 ML VIAL IV ONE (09:45)
[2018-09-03] MEDS ORDERED: LIDOCAINE WITH 8.4% SOD BICARB 3 ML DISP.SYRIN. IJ ONE (09:45)
[2018-09-03 09:56] LABS: % BANDS 27 % (0-9); % EOS 21 % (0-5); % LYMPHS 3 % (24-48); % METAS 1 % (0-0); % MONOS 4 % (0-10); % MYELOS 1 % (0-0); % SEGS 43 % (35-66)
[2018-09-03 09:57] LABS: PLT ESTIMATE DECREASED (ADEQUATE)
[2018-09-03 09:58] LABS: TOXIC VACUOLATION SLIGHT
--- NOTE | 2018-09-03 11:54 | PDOC ---
MODERATE SEDATION ASSESSMENT RISKS/ALTERNATIVES Risks/Alternatives Risks and alternatives of this type of sedation and procedure discussed with: RISK/ALTERNATIVES: Patient H & P ON CHART H & P H & P on chart and reviewed for co-morbid conditions and appropriate labs. H&P ON CHART: Yes STATUS PREG STATUS ASSESSED: Yes MEDS/ALLERGIES REVIEWED Meds/Allergies Reviewed Medications and Allergies including time and route of recently administered narcotics and sedatives. MEDS/ALLERGIES REVIEWED: Yes ASA RATING ASA RATING: II AIRWAY ASSESSMENT Airway Assessment Airway patency, oral function limitations, presence of caps, crowns, dentures, partials, and ability to extend neck assessed. AIRWAY ASSESSMENT: Yes MALLAMPATI SCORE MALLAMPATI SCORE: II PRE-SEDATION ASSESSMENT PRE-SEDATION ASSESSMENT: Yes BRIT GREEN MD Sep 03, 2018 11:54
--- NOTE | 2018-09-03 11:55 | PDOC1 ---
History and Physical Date of Procedure Date of Admission History of Present Illness Reason for Visit pathologic compression fractures at T11 and L3 with debilitating back pain Past Medical History Past Medical History see nursing pre-op assessment Current Medications Current Medications Current Medications Lidocaine/Sodium Bicarbonate (Buffered Lidocaine 1%) 3 ml STK-MED ONCE .ROUTE ; Start 09/03/18 at 09:29; Stop 09/03/18 at 09:30; Status DC Cefazolin Sodium 50 ml @ As Directed STK-MED ONCE IV ; Start 09/03/18 at 09:30 ; Stop 09/03/18 at 09:32; Status DC Midazolam HCl (Versed) 5 mg STK-MED ONCE .ROUTE ; Start 09/03/18 at 09:31; Stop 09/03/18 at 09:32; Status DC Fentanyl Citrate (Fentanyl 5ml Vial) 250 mcg STK-MED ONCE .ROUTE ; Start at 09:31; Stop 09/03/18 at 09:32; Status DC Lidocaine/Sodium Bicarbonate (Buffered Lidocaine 1%) 3 ml 1X ONCE IJ ; Start 09/03/18 at 09:45; Stop 09/03/18 at 09:46; Status DC Midazolam HCl (Versed) 5 mg 1X ONCE IV ; Start 09/03/18 at 09:45; Stop at 09:46; Status DC Fentanyl Citrate (Fentanyl 5ml Vial) 250 mcg 1X ONCE IV ; Start 09/03/18 at 09 :45; Stop 09/03/18 at 09:46; Status DC Cefazolin Sodium 50 ml @ 100 mls/hr 1X ONCE IV ; Start 09/03/18 at 09:45; Stop 09/03/18 at 10:14; Status DC Active Scripts Active Reported Trelegy Ellipta 100-62.5-25 (Fluticasone/Umeclidin/Vilanter) 1 Each Blst.w.dev 1 Each IH DAILY Tramadol Hcl 50 Mg Tablet 50 Mg PO Q6HRS PRN Tamsulosin Hcl 0.4 Mg Cap.er.24h 0.4 Mg PO DAILY Probenecid-Colchicine Tabs (Colchicine/Probenecid) 1 Each Tablet 1 Each PO DAILY Senokot-S Tablet (Sennosides/Docusate Sodium) 1 Each Tablet 1 Each PO BID Oxycodone Hcl Immed.release (Oxycodone Hcl) 5 Mg Tablet 5 Mg PO PRN Q4HRS PRN B-1 (Thiamine HCl) 100 Mg Tablet 100 Mg PO DAILY Preservision Areds Tablet (Vit A/Vit C/Vit E/Zinc/Copper) 1 Each Tablet 1 Each PO DAILY Losartan Potassium 50 Mg Tablet 50 Mg PO DAILY Levothyroxine Sodium 25 Mcg Tablet 25 Mcg PO DAILY Allergies Allergies: Coded Allergies: No Known Drug Allergies (Unverified , 06/25/18) Physical Exam Vital Signs Vital Signs Date Time Temp Pulse Resp B/P (MAP) Pulse Ox O2 Delivery O2 Flow Rate FiO2 09/03/18 09:35 97.7 78 20 121/77 (92) 95 Room Air 97.7 Other see nursing pre-op assessment Assessment Assessment Pathologic acute compression fractures of T11 and L3 Plan Plan Fluoro guided biopsy, RFA and kyphoplasty of T11 and L3 BRIT GREEN MD Sep 03, 2018 11:55
--- NOTE | 2018-09-03 11:57 | PDOC ---
BRIEF OPERATIVE NOTE Pre-Op Diagnosis Pathologic acute compression fractures of T11 and L3 Post-Op Diagnosis same Procedure Performed Biopsy, RFA and kyphoplasty of T11 and L3 Surgeon Ritchie Anesthesia Type: Conscious Sedation Specimens Obtained 1 x 11g Core of T11 and another of L3 Complications No immediate BRIT GREEN MD Sep 03, 2018 11:57
--- NOTE | 2018-09-03 15:27 | RAD ---
Procedure: Fluoroscopic guided biopsy, radiofrequency ablation, and kyphoplasty of T11 and L3 Clinical Indication: Adult male with pathologic compression fractures at T11 and L3, unknown primary neoplasm Sedation: Conscious sedation was administered with a total intraprocedural [id number]-em-dwgh time of 83 minutes. The patient was monitored by a qualified independent observer throughout the time of sedation. Please refer to the medical record for exact doses of medications utilized to achieve moderate sedation. Antibiotics: Antibiotic was administered intravenously within 1 hour of the procedure start time. Exposure: Kerma-Area Product: 124.13 Gycm2 Contrast: None Sterility: All elements of maximal sterile barrier technique including the use of a cap, mask, sterile gown, sterile gloves, large sterile sheet, appropriate hand hygiene, and 2% chlorhexidine for cutaneous antisepsis (or acceptable alternative antiseptic per current guidelines) were followed for this procedure. If ultrasound guidance was utilized, sterile ultrasound techniques were followed including use of a sterile probe cover. Consent: The procedure was explained in its entirety to the patient or the patients designated food service representative by a member of the treatment team, including a discussion of the risks, benefits and commonly accepted alternatives to the procedure, as well as the expected consequences of no therapy whatsoever. Discussion of the risks included, but was not limited to, those that are most frequent and those that are rare but possibly severe or life-threatening, as well as the possibility of unforeseen complications. Technique and Findings: Following informed consent, the patient was prepped and draped in usual sterile fashion. 1% lidocaine was used to achieve local anesthesia over the paraspinal soft tissues at T11 and L3. Small dermatotomies were made. Under fluoroscopic guidance, 10-gauge needles were advanced in a transpedicular fashion to the posterior aspect of each vertebral body. An 11-gauge needle was then advanced coaxially into both vertebral bodies to obtain a biopsy specimen, each of which was preserved in a separate formalin container. At L3, and angled osteotome was then used to create a cavity. This process was repeated T11. Radio frequency ablation of each bone was then performed sequentially, to achieve a temperature of 50 degrees centigrade at the proximal thermocouple at T11 and 51 degrees centigrade at the proximal thermocouple at L3. The radiofrequency ablation probe was then removed and polymethylmethacrylate was instilled first at L3 and then at T11. Once the cement distribution was felt to be adequate, both needles were removed and hemostasis was achieved with manual compression. Complications: No immediate Impression: 1. Fluoroscopy bone biopsy at L3 and T11 as described. 2. Fluoroscopy radiofrequency ablation of L3 and T11 as described. 3. Fluoroscopy guided kyphoplasty of L3 and T11 as described.
== END 2018-09-03 12:15 | disposition home or self-care (01) ==
LOC: INTRAD 08:48
PROVIDERS: ATTEND Internal Medicine Hematology & Oncology
DX: M84.48XA Pathological fracture, other site, initial encounter for fracture (principal); M54.6 Pain in thoracic spine; M54.5 Low back pain; C79.51 Secondary malignant neoplasm of bone; C80.1 Malignant (primary) neoplasm, unspecified; Z86.19 Personal history of other infectious and parasitic diseases; F41.9 Anxiety disorder, unspecified; M19.90 Unspecified osteoarthritis, unspecified site; J44.9 Chronic obstructive pulmonary disease, unspecified; F32.9 Major depressive disorder, single episode, unspecified; N40.0 Benign prostatic hyperplasia without lower urinary tract symptoms; M10.9 Gout, unspecified; I10 Essential (primary) hypertension; E03.9 Hypothyroidism, unspecified; Z85.46 Personal history of malignant neoplasm of prostate; Z90.49 Acquired absence of other specified parts of digestive tract; Z98.890 Other specified postprocedural states; Z82.49 Family history of ischemic heart disease and other diseases of the circulatory system; F17.210 Nicotine dependence, cigarettes, uncomplicated; Z72.89 Other problems related to lifestyle; Z79.899 Other long term (current) drug therapy
CPT/HCPCS: 20982; 22513; 22515; 36415; 85025; 85610; 99152; 99153; C1758; J0690; J2250; J3010; 22514; 85007

== ENCOUNTER → 2018-09-08 | Outpatient (CLI) | payer BC ==
[2018-09-03 14:00] VITALS: BP 114/65
[~2018-09-08] MED LIST changes: +FLUT1BLS3 IH; +GADOBUTROL 7.5 MMOL/7.5 ML VIAL IV ONE; +TAMS0.4C2 PO; +TRAM50TA PO
--- NOTE | 2018-09-08 12:16 | RAD ---
EXAMINATION: Magnetic resonance imaging (MRI) of the brain and brainstem without and with contrast 09/08/2018 11:15 AM HISTORY: Lung cancer and history of prostate cancer. TECHNIQUE: Multiplanar multi-weighted MRI of the brain and brainstem was performed without and with intravenous contrast using the general brain protocol. Contrast information: 6 mL Gadolinium based contrast COMPARISON: None available. FINDINGS: The scalp and calvarium are normal. The superior sagittal sinus demonstrates normal venous flow. The corpus callosum is normal in shape and signal intensity. The posterior fossa is unremarkable. The pituitary and sella are normal. The brainstem and craniocervical junction are unremarkable. Diffusion weighted images reveal no hyperintensities to suggest acute cerebral infarction. The susceptibility weighted sequences reveal no evidence of acute or chronic hemorrhage. Ventricles are prominent compatible with moderate generalized cerebral volume loss. There is a 9 mm rim-enhancing lesion in the left frontal lobe (series 11, image 17) with associated vasogenic edema. There is no significant mass effect or midline shift. The paranasal sinuses are normal. The visualized portions of the mastoids are unremarkable. The orbits appear normal with exception of bilateral lens replacement. Normal flow voids are demonstrated in the carotid arteries and basilar artery. IMPRESSION: Single focus of intracranial metastasis within the left frontal lobe measuring 9 mm with associated vasogenic edema. No significant midline shift or mass effect. Electronically signed by: Mari Barragan MD (09/08/2018 12:12 PM) [id number]
== END | disposition home or self-care (01) ==
LOC: MRI 14:06
PROVIDERS: ATTEND Internal Medicine Hematology & Oncology
DX: C79.51 Secondary malignant neoplasm of bone (principal); Z85.46 Personal history of malignant neoplasm of prostate; Z85.118 Personal history of other malignant neoplasm of bronchus and lung
CPT/HCPCS: 70553; A9585

== ENCOUNTER → 2018-10-27 | Outpatient (CLI) | payer BC ==
[2018-09-03 14:00] VITALS: BP 114/65
[~2018-10-27] MED LIST changes: -GADOBUTROL 7.5 MMOL/7.5 ML VIAL IV ONE; +OXYC30TA64 PO; +PEMB100V IV
--- NOTE | 2018-10-27 13:36 | RAD ---
Whole body bone scan Clinical indications: Metastatic lung cancer. Increasing right hip pain. COMPARISON: August 29, 2018. TECHNIQUE: After IV infusion of 25.4 mCi of technetium 99m MDP, delayed anterior and posterior planar images of the whole body were performed. FINDINGS: Bilateral renal function is evident. There is a decrease in the amount of soft tissue uptake due to diffuse osseous uptake involving the entire spine and the sternum and both sides of the rib cage and both sides of the pelvis and the calvarium and the left mandible and the proximal right humerus and the proximal femur on both sides. This is due to diffuse osseous metastatic disease. This has progressed from the prior study. In particular, there has been an increase in metastatic disease of both sides of the pelvis including the acetabulum on both sides more so on the left side. There has been an increase in uptake of the right side of the sacrum adjacent to the right SI joint. These findings may account for patient's increasing right hip pain. IMPRESSION: Progression of osseous metastatic disease. Electronically signed by: Lewis Lobato MD (10/27/2018 1:32 PM) [id number]
== END | disposition home or self-care (01) ==
LOC: NM 08:40
PROVIDERS: ATTEND Radiology Radiation Oncology
DX: C79.51 Secondary malignant neoplasm of bone (principal); C61 Malignant neoplasm of prostate; M25.551 Pain in right hip
CPT/HCPCS: 78306; 96374; A9503